=== PATIENT | female | born 1995 | race Caucasian/White ===

== ENCOUNTER 2018-07-29 12:01 | Emergency (ER) | payer OTHER ==
[2018-07-29 13:14] VITALS: BP 119/59
--- NOTE | 2018-07-29 13:38 | UC ---
Upper Extremity HPI - History of Current Complaint Chief Complaint: UCGeneralIllness Stated Complaint: LEFT ELBOW COMPLAINT (WC) Time Seen by Provider: 07/29/18 13:10 Hx Obtained From: Patient Hx Last Menstrual Period: depoprovera ?: No Onset/Duration: Sudden Onset, Lasting Days Severity Initially: Moderate Severity Currently: Moderate Pain Intensity: 7 Location Of Pain: Is Diffuse - She points to the entire left elbow. Aggravating Factor(s): Movement, Lifting, Flexion, Extension Alleviating Factor(s): Rest Associated Signs And Symptoms: Positive: Numbness/Tingling. Negative: Redness - Allergies/Home Medications Allergies/Adverse Reactions: Allergies Allergy/AdvReac Type Severity Reaction Status Date / Time Penicillins Allergy Intermediate Vomiting Verified 07/29/18 13:15 hydrocodone AdvReac Altered Verified 07/29/18 13:15 Mental Status NSAIDS (Non-Steroidal AdvReac See Comment Verified 07/29/18 13:15 Anti-Inflamma PMH/Surg Hx/FS Hx/Imm Hx Previously Healthy: Yes - Surgical History Surgical History: Yes Surgery Procedure, Year, and Place: TUBES EARS. TONSILLECTOMY. TYMPANIC MEMBRANE REPAIR - Family History Known Family History: Positive: None - no FH migraines - Social History Alcohol Use: None Substance Use Type: None Smoking Status (MU): Never Smoked Tobacco Review of Systems All Other Systems Reviewed And Are Negative: Yes Musculoskeletal: Positive: Arthralgia Physical Exam Triage Information Reviewed: Yes Appearance: Well-Appearing - No distress but she is holding her left arm on her lap., No Pain Distress, Well-Nourished Vital Signs: Initial Vital Signs Temp 98.5 F 07/29/18 13:10 Pulse 66 07/29/18 13:10 Resp 18 07/29/18 13:10 BP 119/59 07/29/18 13:10 Pulse Ox 100 07/29/18 13:10 Vital Signs Reviewed: Yes Eyes: Positive: Conjunctiva Clear ENT: Positive: Normal ENT inspection Neck: Positive: Supple, Nontender, No Lymphadenopathy Respiratory: Positive: Lungs clear, Normal breath sounds, No respiratory distress, No accessory muscle use. Negative: Respiratory distress, Decreased breath sounds, Accessory muscle use, Crackles, Rhonchi, Stridor Cardiovascular: Positive: Pulses Normal, Brisk Capillary Refill Abdomen Description: Positive: No Organomegaly, Soft. Negative: Distended, Guarding Musculoskeletal Exam: Other - No neck pain/tenderness. No left shoulder pain or tenderness. There is diffuse left elbow tenderness. There is no effusion or redness. Passive ROM is intact. No lizeth tenderness that is specific or localizing. Upper Extremity Course/Dx - Differential Dx/Diagnosis Provider Diagnosis: Elbow pain, left Discharge - Sign-Out/Discharge Documenting (check all that apply): Patient Departure All imaging exams completed and their final reports reviewed: No Studies - Discharge Plan Condition: Good Disposition: HOME Prescriptions: Naproxen [Naproxen 500 mg tab] 500 mg PO BID PRN #20 tablet.dr GLORIA Reason: Pain Patient Education Materials: Elbow Sprain (ED) Forms: *Work Release Referrals: Norris Dillard MD [Medical Doctor] - If Needed Jeet Perez MD [Primary Care Provider] - - Billing Disposition and Condition Condition: GOOD Disposition: Home
== END 2018-07-29 13:42 | disposition home or self-care (01) ==
LOC: UCCORT 12:01
DX: M25.522 Pain in left elbow (principal); Z88.0 Allergy status to penicillin; Z88.5 Allergy status to narcotic agent; Z88.6 Allergy status to analgesic agent
CPT/HCPCS: 99213; G0463

== ENCOUNTER 2022-12-23 15:59 | Inpatient (IN) ==
[2022-12-23] MEDS ORDERED: Buffered Lidocaine 1% SYRIN 1 ml INTRADERM ONE (16:32)
[2022-12-23] MEDS ORDERED: Promethazine INJ(RESTRICTED) 25 MG/ML 1 ml VIAL IV PRN (16:32)
[2022-12-23] MEDS ORDERED: Morphine 10 MG/ML VIAL (1 ml) IV PRN (16:37)
[2022-12-23] MEDS ORDERED: Oxytocin in LR 20,000 MILLI.UNIT/1,000 ML BAG IV SCH (16:45)
[2022-12-23] MEDS ORDERED: Lactated Ringers 1000 ml BAG 1,000 ML IV SCH (17:00)
[2022-12-23] MEDS: Lactated Ringers 1000 ml BAG 1,000 ML IV ONE (17:45)
[2022-12-23 17:59] LABS: ABS Lymphocytes 2.1 10^3/uL (1.0-4.8); ABS Monocytes 0.5 10^3/uL (0.0-0.9); ABS Neutrophils 10.2 10^3/uL (1.5-7.6); Eosinophil % 0.3 %; Hematocrit 32.4 % (35-45); Lymphocyte % 16.3 %; Mean Corpuscular Hemoglobin 28.7 pg (27-33); Mean Corpuscular Volume 84.4 fL (80-97); Mean Platelet Volume 7.8 fL (7.5-11.2); Platelet Count 331 10^3/uL (150-450); Red Blood Count 3.84 10^6/uL (3.63-4.92); Red Cell Distribution Width 15.6 % (12-17); White Blood Count 12.9 10^3/uL (3.8-11.8)
[2022-12-23 18:02] LABS: Urine Benzodiazepine Screen None Detected (None Detect); Urine Cannabinoids Screen None Detected (None Detect); Urine Opiates Screen None Detected (None Detect)
[2022-12-24] MEDS ORDERED: OBEPIDURAL (200 ML) 200 ML EPIDURAL ONE (01:26)
[2022-12-24] MEDS ORDERED: Lidocaine 1% w EPI 1:200,000 SDV 30 ML VIAL ONE (01:27)
[2022-12-24] MEDS: Lactated Ringers 1000 ml BAG 1,000 ML IV ONE (01:44)
[2022-12-24] MEDS ORDERED: Lidocaine 1% VIAL 10 MG/ML VIAL 30 ML ONE (04:17)
[2022-12-24] MEDS ORDERED: Glycerin ADULT 2.4 gm SUPP PR PRN (04:36)
[2022-12-24] MEDS ORDERED: Witch Hazel PAD JAR TOPICAL PRN (04:36)
[2022-12-24] MEDS ORDERED: Dibucaine 1% OINT 28.35 GM TUBE PR PRN (04:36)
[2022-12-24] MEDS ORDERED: Lactated Ringers 1000 ml BAG 1,000 ML IV SCH (05:00)
[2022-12-24] MEDS ORDERED: Lidocaine 1% MPF 5 ML VIAL ONE (06:00)
[2022-12-25 07:47] LABS: ABS Basophils 0.1 10^3/uL (0.0-0.1); ABS Eosinophils 0.1 10^3/uL (0.0-0.5); ABS Lymphocytes 2.2 10^3/uL (1.0-4.8); ABS Monocytes 0.7 10^3/uL (0.0-0.9); ABS Nucleated RBC 0.01 10^3/ul; Eosinophil % 0.6 %; Hematocrit 30.7 % (35-45); Hemoglobin 10.5 g/dL (11.5-14.3); Lymphocyte % 17.9 %; Mean Corpuscular Hgb Conc 34.3 g/dL (31-36); Mean Corpuscular Volume 84.6 fL (80-97); Mean Platelet Volume 7.2 fL (7.5-11.2); Nucleated Red Blood Cells % 0.1 /100 WBC (0.0-0.4); Platelet Count 267 10^3/uL (150-450); Red Blood Count 3.63 10^6/uL (3.63-4.92); Red Cell Distribution Width 15.6 % (12-17)
[2022-12-25 07:56] VITALS: BP 95/57
== END 2022-12-25 11:51 | disposition home or self-care (01) | DRG 560 ==
LOC: MCHOBOUT 15:59 → MCHOB 16:31
PROVIDERS: ADMIT Advanced Practice Midwife; ATTEND Advanced Practice Midwife